=== PATIENT | male | born 1985 | race Hispanic/Latino ===

== ENCOUNTER 2018-02-14 15:53 | Emergency (ER) | payer SELFPAY ==
[2018-02-14 16:09] VITALS: BP 110/66
[2018-02-14] MEDS ORDERED: TORADOL IV ONE (18:02)
[2018-02-14] MEDS ORDERED: NACL 0.9% 1000 ML 1,000 ML IV ONE (18:02)
[2018-02-14] MEDS ORDERED: BENTYL IM ONE (18:02)
--- NOTE | 2018-02-14 18:04 | Emergency Department Report ---
Blank Doc - Documentation Documentation: Patient is a 32-year-old male who has a history of ulcerative colitis who is presenting with 1 week of diarrhea with blood present With severe abdominal cramping. Patient states that the cramping is colicky and intermittent. Patient states that he does have some mild weakness as well. Patient denies any fevers chills or vomiting. Patient be moved to treatment room to get IV fluids will check his electrolytes shows no abnormality.
[2018-02-14 18:19] LABS: Basophils % (Auto) 0.4 % (0.0-1.8); Eosinophils # (Auto) 0.2 K/mm3 (0.0-0.4); Eosinophils % (Auto) 2.1 % (0.0-4.3); Hematocrit 37.3 % (35.5-45.6); Hemoglobin 11.9 gm/dl (11.8-15.2); Lymphocytes % (Auto) 12.4 % (13.4-35.0); Mean Corpuscular HGB Conc 32 % (32-34); Mean Corpuscular Hemoglobin 27 pg (28-32); Mean Corpuscular Volume 85 fl (84-94); Monocytes # (Auto) 1.3 K/mm3 (0.0-0.8); Monocytes % (Auto) 15.2 % (0.0-7.3); Platelet Count 506 K/mm3 (140-440); Red Blood Count 4.37 M/mm3 (3.65-5.03); Red Cell Distribution Width 12.3 % (13.2-15.2)
[2018-02-14 18:44] LABS: Alanine Aminotransferase 10 units/L (7-56); BUN/Creatinine Ratio 10; Blood Urea Nitrogen 10 mg/dL (9-20); Calcium 8.4 mg/dL (8.4-10.2); Hemolysis Index 0
--- NOTE | 2018-02-14 19:09 | Emergency Department Report ---
ED N/V/D HPI - General Chief complaint: Abdominal Pain Stated complaint: COLITIS/DIARRHEA Time Seen by Provider: 02/14/18 17:43 Source: patient Mode of arrival: Ambulatory Limitations: No Limitations - History of Present Illness Initial comments: Patient is a 32-year-old male who has a history of ulcerative colitis who is presenting with 1 week of diarrhea with blood present With severe abdominal cramping. Patient states that the cramping is colicky and intermittent. Patient states that he does have some mild weakness as well. Patient denies any fevers chills or vomiting. Description of Diarrhea: blood-streaked Radiation: none Severity: mild Pain Scale: 5 Quality: cramping Consistency: constant Improves with: none Worsens with: none - Related Data Previous Rx's Medication Instructions Recorded Last Taken Type Loratadine [Claritin] 10 mg PO BID tablet 03/27/15 Unknown Rx Minocycline HCl [Minocin] 100 mg PO BID 03/27/15 Unknown Rx Dicyclomine [Bentyl] 10 mg PO QID #15 capsule 02/14/18 Unknown Rx Prednisone [predniSONE 10 mg 10 mg PO .TAPER #1 tab.ds.pk 02/14/18 Unknown Rx (6-Day Pack, 21 Tabs)] Allergies Allergy/AdvReac Type Severity Reaction Status Date / Time No Known Allergies Allergy Verified 02/14/18 16:04 ED Review of Systems ROS: Stated complaint: COLITIS/DIARRHEA Other details as noted in HPI Comment: All other systems reviewed and negative ED Past Medical Hx - Past Medical History Previous Medical History?: No - Surgical History Hx Appendectomy: Yes - Social History Smoking Status: Never Smoker Substance Use Type: None - Medications Home Medications: Home Medications Medication Instructions Recorded Confirmed Last Taken Type Loratadine [Claritin] 10 mg PO BID tablet 03/27/15 Unknown Rx Minocycline HCl [Minocin] 100 mg PO BID 03/27/15 Unknown Rx Dicyclomine [Bentyl] 10 mg PO QID #15 capsule 02/14/18 Unknown Rx Prednisone [predniSONE 10 mg 10 mg PO .TAPER #1 tab.ds.pk 02/14/18 Unknown Rx (6-Day Pack, 21 Tabs)] ED Physical Exam - General Limitations: No Limitations General appearance: alert, in no apparent distress - Head Head exam: Present: atraumatic, normocephalic - Eye Eye exam: Present: normal appearance - ENT ENT exam: Present: mucous membranes moist - Neck Neck exam: Present: normal inspection - Respiratory Respiratory exam: Present: normal lung sounds bilaterally. Absent: respiratory distress, wheezes, rales, rhonchi - Cardiovascular Cardiovascular Exam: Present: regular rate, normal rhythm. Absent: systolic murmur, diastolic murmur, rubs, gallop - GI/Abdominal GI/Abdominal exam: Present: soft, normal bowel sounds. Absent: distended, tenderness, guarding, rebound - Rectal Rectal exam: Present: deferred - Extremities Exam Extremities exam: Present: normal inspection - Back Exam Back exam: Present: normal inspection - Neurological Exam Neurological exam: Present: alert, oriented X3 - Psychiatric Psychiatric exam: Present: normal affect, normal mood - Skin Skin exam: Present: warm, dry, intact, normal color. Absent: rash ED Course Vital Signs 02/14/18 16:04 Temperature 98.1 F Pulse Rate 100 H Respiratory 16 Rate Blood Pressure 110/66 O2 Sat by Pulse 100 Oximetry ED Medical Decision Making - Lab Data Result diagrams: 02/14/18 17:59 02/14/18 17:59 - Medical Decision Making She was given IV fluids. Patient also was given a dose of Solu-Medrol. Patient states in the past when he has episodes like this he's placed on a Medrol Dosepak.. Patient also be sent home with Critical care attestation.: If time is entered above; I have spent that time in minutes in the direct care of this critically ill patient, excluding procedure time. ED Disposition Clinical Impression: Ulcerative colitis with rectal bleeding Disposition: DC- TO HOME OR SELFCARE Is pt being admited?: No Does the pt Need Aspirin: No Condition: Stable Prescriptions: Dicyclomine [Bentyl] 10 mg PO QID #15 capsule Prednisone [predniSONE 10 mg (6-Day Pack, 21 Tabs)] 10 mg PO .TAPER #1 tab.ds.pk Referrals: PRIMARY CARE,MD [Primary Care Provider] - 3-5 Days
== END 2018-02-14 19:22 | disposition home or self-care (01) ==
LOC: ED 15:53
DX: K51.911 Ulcerative colitis, unspecified with rectal bleeding (principal); Z90.49 Acquired absence of other specified parts of digestive tract; Z79.899 Other long term (current) drug therapy
CPT/HCPCS: 36415; 80053; 85025; 96361; 96372; 96374; 96375; 99283; J0500; J1885; J2930; J7030